=== PATIENT | male | born 1995 | race American Indian/Alaskan Native ===

== ENCOUNTER 2017-12-18 23:14 | Emergency (ER) | payer BC ==
[2017-12-18 23:24] VITALS: BMI 24.5
[2017-12-18 23:26] VITALS: TEMP 97.9
--- NOTE | 2017-12-18 23:44 | ED PDOC ---
Arrival/HPI - General Historian: Patient <Francisca Medrano PA-C - Last Filed: 12/18/17 23:41> <Jeremie Hernandez - Last Filed: 12/19/17 00:01> - General Time Seen by Provider: 12/18/17 23:26 - History of Present Illness Narrative History of Present Illness (Text): 12/18/17 23:45 22 yo M c/o b/l eye pain, redness with d/c x2 days, R eye > L eye. Patient states that he wears contact lens. He believes that FB may have flown into his eye at work when he was using a machine to cut plastic yesterday. Denies any decrease in vision, headache, fever, URI. (Francisca Medrano PA-C) Past Medical History - Infectious Disease Hx of Infectious Diseases: None - Past Medical History Past Medical History: No Previous - Psychiatric Hx Depression: No Hx Substance Use: No - Past Surgical History Past Surgical History: No Previous - Suicidal Assessment Feels Threatened In Home Enviroment: No <Francisca Medrano PA-C - Last Filed: 12/18/17 23:41> Family/Social History Family/Social History: No Known Family HX Smoking Status: Light Smoker < 10 Cigarettes Daily Hx Alcohol Use: Yes Hx Substance Use: No Hx Substance Use Treatment: No <Francisca Medrano PA-C - Last Filed: 12/18/17 23:41> Allergies/Home Meds <Francisca Medrano PA-C - Last Filed: 12/18/17 23:41> <Jeremie Hernandez - Last Filed: 12/19/17 00:01> Allergies/Adverse Reactions: Allergies shrimp Allergy (Verified 12/18/17 23:25) RASH Review of Systems - Review of Systems Constitutional: absent: Fatigue, Fevers Eyes: Eye Pain. absent: Vision Changes ENT: absent: Sore Throat, Rhinorrhea Respiratory: absent: Cough, Sputum Skin: absent: Rash, Pruritis, Skin Lesions Neurological: absent: Headache, Dizziness <Francisca Medrano PA-C - Last Filed: 12/18/17 23:41> Physical Exam Temperature: Afebrile Blood Pressure: Hypertensive Pulse: Regular Respiratory Rate: Normal Appearance: Positive for: Well-Appearing, Non-Toxic, Comfortable Pain Distress: None Mental Status: Positive for: Alert and Oriented X 3 - Systems Exam Head: Present: Atraumatic, Normocephalic Pupils: Present: PERRL Extroacular Muscles: Present: EOMI Conjunctiva: Present: Injected, Other (+corneal abrasion at 12 o'clock of the R eye, no FB noted to each eye and no FB noted under the eyelids of both eyes) Mouth: Present: Moist Mucous Membranes Neck: Present: Normal Range of Motion Upper Extremity: Present: Normal Inspection. No: Edema Neurological: Present: GCS=15, CN II-XII Intact, Motor Func Grossly Intact, Normal Sensory Function Skin: Present: Warm, Dry Psychiatric: Present: Alert, Oriented x 3 <Francisca Medrano PA-C - Last Filed: 12/18/17 23:41> Vital Signs Temp Pulse Resp BP Pulse Ox 12/18/17 23:25 97.9 F 64 18 156/96 H 99 Medical Decision Making <Francisca Medrano PA-C - Last Filed: 12/18/17 23:41> <Jeremie Hernandez - Last Filed: 12/19/17 00:01> ED Course and Treatment: 12/18/17 23:43 Plan : - visual acuity - ciloxin ophthalmic - motrin po Advised to follow up with eye doctor in 1-2 days without fail. Advised to take medication as prescribed. Return to the emergency room at any time for any new or worsening symptoms. Patient states he fully agrees with and understands discharge instructions. States that he agrees with the plan and disposition. Verbalized and repeated discharge instructions and plan. I have given the patient opportunity to ask any additional questions. (Francisca Medrano PA-C) - Medication Orders Current Medication Orders: Discontinued Medications Ciprofloxacin (Ciloxan 0.3% Ophth Soln) 1 drop OU STAT STA Stop: 12/18/17 23:49 Ibuprofen (Motrin Tab) 600 mg PO STAT STA Stop: 12/18/17 23:49 - PA / [employer] / Resident Statement MD/DO has reviewed & agrees with the documentation as recorded. <Francisca Medrano PA-C - Last Filed: 12/18/17 23:41> - PA / [employer]TE[employer] / Resident Statement / has reviewed & agrees with the documentation as recorded. <Jeremie Hernandez - Last Filed: 12/19/17 00:01> Disposition/Present on Arrival - Present on Arrival Any Indicators Present on Arrival: No History of DVT/PE: No History of Uncontrolled Diabetes: No Urinary Catheter: No History of Decub. Ulcer: No History Surgical Site Infection Following: None - Disposition Have Diagnosis and Disposition been Completed?: Yes Disposition Time: 23:45 Patient Plan: Discharge <Francisca Medrano PA-C - Last Filed: 12/18/17 23:41> <DavidJeremie - Last Filed: 12/19/17 00:01> - Disposition Diagnosis: Corneal abrasion, right, Conjunctivitis Disposition: HOME/ ROUTINE Condition: STABLE Discharge Instructions (ExitCare): Conjunctivitis (Pinkeye) (DC), Corneal Abrasion (DC) Additional Instructions: Thank you for letting us take care of you today. You were treated for corneal abrasion R eye, conjunctivitis. The emergency medical care you received today was directed at your acute symptoms. If you were prescribed any medication, please fill it and take as directed. It may take several days for your symptoms to resolve. Return to the Emergency Department if your symptoms worsen, do not improve, or if you have any other problems. Please call one of the physicians/clinics you have been referred to that are listed on the Patient Visit Information form that is included in your discharge packet. Bring any paperwork you were given at discharge with you along with any medications you are taking to your follow up visit. Our treatment cannot replace ongoing medical care by a primary care provider (PCP) outside of the emergency department. Thank you for allowing the [facility] team to be part of your care today. Prescriptions: Ketorolac Tromethamine [Acular 0.5%] 1 drop EACHEYE QID #1 bottle Ciprofloxacin 0.3% [Ciloxan 0.3% Ophth SOLN] 1 drop EACHEYE QID #1 bottle Ibuprofen [Motrin Tab] 600 mg PO QID PRN #20 tab PRN Reason: Pain, Moderate (4-7) Referrals: Ruben Steele [Staff Provider] - Follow up with primary Forms: WORK NOTE
[2017-12-19] MEDS: Ciprofloxacin 0.3% OPTH SOLN OU STA (00:09)
[2017-12-19 00:17] VITALS: BP 140/92; PULSE 60; RESP 17; O2SAT 100
== END 2017-12-19 00:09 | disposition home or self-care (01) ==
LOC: ED 23:14
DX: S05.01XA Injury of conjunctiva and corneal abrasion without foreign body, right eye, initial encounter (principal); X58.XXXA Exposure to other specified factors, initial encounter; H10.9 Unspecified conjunctivitis; F17.210 Nicotine dependence, cigarettes, uncomplicated